=== PATIENT | male | born 1955 | race Caucasian/White ===

== ENCOUNTER → 2016-10-07 | Outpatient (REF) | payer OTHER ==
[~2016-10-07] MED LIST: /ESOM40CA; ADVIL; IBUP800T; LIPI20TA; LISI10TA4; VICO5TAB; VYTO10TA5
== END ==
LOC: M LABNEURO 17:19
PROVIDERS: ATTEND Psychiatry & Neurology Neurology
DX: M25.50 Pain in unspecified joint (principal)

== ENCOUNTER 2017-11-17 04:07 | Emergency (ER) | payer OTHER ==
[2017-11-17] MEDS: FLUORESCEIN OPHTH 1 MG STRIP OU (04:30)
[2017-11-17] MEDS: TETRACAINE 0.5% OPHTH SOLN 4ML OU (04:30)
[2017-11-17] MEDS: ERYTHROMYCIN OPHTH OINT OU (05:04)
[2017-11-17] MEDS: OXYCODONE/APAP 5MG/325MG(BULK FOR ED) 1 TABLET PO (05:04)
[2017-11-17] MEDS: ADACEL/BOOSTRIX VACCINE (DIPHTH/PERTUSS/ACELL/TETANUS)0.5ML SYR (90715) IM (05:04)
== END 2017-11-17 05:17 | disposition home or self-care (01) ==
LOC: M ED 04:07
DX: H16.133 Photokeratitis, bilateral (principal); W89.0XXA Exposure to welding light (arc), initial encounter; E11.9 Type 2 diabetes mellitus without complications; Y92.099 Unspecified place in other non-institutional residence as the place of occurrence of the external cause; Y93.89 Activity, other specified; Y99.9 Unspecified external cause status; Z79.01 Long term (current) use of anticoagulants; Z79.84 Long term (current) use of oral hypoglycemic drugs; Z79.899 Other long term (current) drug therapy; Z91.041 Radiographic dye allergy status
CPT/HCPCS: 90715

== ENCOUNTER → 2018-01-18 | Outpatient (REF) | payer OTHER ==
[2018-01-18 13:49] LABS: APPEARANCE, URINE CLEAR (CLEAR); BACTERIA, URINE AUTO NEGATIVE (NEGATIVE); BILIRUBIN, URINE AUTO NEGATIVE (NEGATIVE); BLOOD, URINE BLOOD NEGATIVE (NEGATIVE); COLOR, URINE YELLOW (YELLOW); GLUCOSE, URINE (UA) AUTO 3+ mg/dL (NEGATIVE); KETONE, URINE AUTO NEGATIVE (NEGATIVE); LEUKOCYTE ESTERASE, URINE AUTO NEGATIVE (NEGATIVE); MUCUS, URINE SMALL (NEGATIVE); NITRITE, URINE AUTO NEGATIVE (NEGATIVE); PROTEIN, URINE AUTO NEGATIVE (NEGATIVE); RBC, URINE AUTO 0 /HPF (0-3); SPECIFIC GRAVITY URINE AUTO 1.029 (1.002-1.035); SQUAMOUS EPITHELIAL CELL UR AU 0 /HPF (0-6); UROBILINOGEN, URINE AUTO 0.2 mg/dL (0.0-2.0); WBC, URINE AUTO 0 /HPF (0-3)
[2018-01-18 15:10] LABS: CHLAMYDIA DNA AMPLIFICATION NEGATIVE (NEGATIVE); GC DNA AMPLIFICATION NEGATIVE (NEGATIVE)
== END ==
LOC: M SMT 13:11
DX: R30.0 Dysuria (principal)
CPT/HCPCS: 81001

== ENCOUNTER 2018-02-07 07:04 | Day surgery (SDC) | payer OTHER ==
[2018-02-07] MEDS ORDERED: LIDOCAINE 2% INJ 100 MG/5 ML SDV (FOR ANES.) As Ordered (07:09)
[2018-02-07] MEDS ORDERED: PROPOFOL 200 MG/20 ML VIAL As Ordered (07:09)
[2018-02-07] MEDS: NS 1,000 ML IV (07:31)
== END 2018-02-07 09:37 | disposition home or self-care (01) ==
LOC: M OPP 07:04
DX: K62.5 Hemorrhage of anus and rectum (principal); D12.2 Benign neoplasm of ascending colon; K64.0 First degree hemorrhoids; K57.30 Diverticulosis of large intestine without perforation or abscess without bleeding; I10 Essential (primary) hypertension; E78.5 Hyperlipidemia, unspecified; E11.9 Type 2 diabetes mellitus without complications; Z87.19 Personal history of other diseases of the digestive system; Z97.8 Presence of other specified devices; Z86.79 Personal history of other diseases of the circulatory system; K21.9 Gastro-esophageal reflux disease without esophagitis; R12 Heartburn; M19.90 Unspecified osteoarthritis, unspecified site; M54.89 Other dorsalgia; M54.2 Cervicalgia; H02.9 Unspecified disorder of eyelid; Z86.73 Personal history of transient ischemic attack (TIA), and cerebral infarction without residual deficits; Z86.711 Personal history of pulmonary embolism; G47.30 Sleep apnea, unspecified; R06.83 Snoring; N40.1 Benign prostatic hyperplasia with lower urinary tract symptoms; Z98.1 Arthrodesis status; Z87.891 Personal history of nicotine dependence; Z91.041 Radiographic dye allergy status; Z79.01 Long term (current) use of anticoagulants; Z79.84 Long term (current) use of oral hypoglycemic drugs; Z79.899 Other long term (current) drug therapy
CPT/HCPCS: 45385

== ENCOUNTER → 2018-02-28 | Outpatient (REF) | payer OTHER ==
[2018-02-28 14:19] LABS: IRON (FE) 67 UG/DL (65-175); PERCENT SATURATION 19.5 % (19.7-50.0); TOTAL IRON BINDING CAPACITY 343 UG/DL (250-450)
[2018-03-01 08:06] LABS: TRANSFERRIN 259 mg/dL (200-370)
== END ==
LOC: M LAB REF 13:14
DX: G47.33 Obstructive sleep apnea (adult) (pediatric) (principal)

== ENCOUNTER → 2018-06-06 | Outpatient (REF) | payer OTHER ==
[2018-06-06 19:42] LABS: APPEARANCE, URINE CLEAR (CLEAR); BACTERIA, URINE AUTO NEGATIVE (NEGATIVE); BILIRUBIN, URINE AUTO NEGATIVE (NEGATIVE); BLOOD, URINE BLOOD NEGATIVE (NEGATIVE); COLOR, URINE YELLOW (YELLOW); GLUCOSE, URINE (UA) AUTO 3+ mg/dL (NEGATIVE); KETONE, URINE AUTO NEGATIVE (NEGATIVE); LEUKOCYTE ESTERASE, URINE AUTO NEGATIVE (NEGATIVE); MUCUS, URINE SMALL (NEGATIVE); NITRITE, URINE AUTO NEGATIVE (NEGATIVE); PROTEIN, URINE AUTO NEGATIVE (NEGATIVE); RBC, URINE AUTO 0 /HPF (0-3); SPECIFIC GRAVITY URINE AUTO 1.035 (1.002-1.035); SQUAMOUS EPITHELIAL CELL UR AU 0 /HPF (0-6); UROBILINOGEN, URINE AUTO 0.2 mg/dL (0.0-2.0); WBC, URINE AUTO 0 /HPF (0-3)
== END ==
LOC: M SMT 18:45
DX: R35.0 Frequency of micturition (principal)
CPT/HCPCS: 81001

== ENCOUNTER → 2018-09-13 | Outpatient (CLI) | payer OTHER ==
[~2018-09-13] MED LIST changes: +AMLO10TA PO; +COLA100C5 PO; +DOCU100C16 PO; +ELIQ5TAB PO; +FERR325T3 PO; +FLOM0.4C39 PO; +GLIP5TAB8 PO; +JARD1TAB PO; +LIPI20TA PO; +METF10004 PO; +NIFE30TA7 PO; +OMEGCAP9 PO; +PERC5TAB12 PO; +PROHANCE 279.3MG/ML 15ML VIAL (A9576) As Ordered ONE; +PROT1TAB2 PO; +TAGA200T3 PO; +VITA400C7 PO; +VITA500T PO; +ZANA4CAP PO; +ZETI10TA30 PO; +erythromycin ophth OU
--- NOTE | 2018-09-14 20:07 | REP ---
MRI ABDOMEN WITHOUT AND WITH CONTRAST: 09/13/2018. Comparison: Renal ultrasound [facility] 08/16/2018. MRI adrenals 02/04/2017 at [facility], CTA chest 01/11/2019 at [facility], noncontrast and contrast CT 10/17/2007 here. Technique: T2 coronal with axial in and out of phase, T2 and fat suppressed T2 sequences with gradient echo images along with diffusion-weighted images and ADC mapping sequence. After infusion of a bolus of 11 mL of ProHance, dynamic axial gradient echo fat suppressed sequences with coronal gradient echo sequence also provided. Clinical history: Recent ultrasound reviewed and question dromedary hump versus mass. The precontrast T2 images show a few parapelvic cysts in the left kidney and a couple of cortical cysts on the right, all with simple cyst characteristics. The largest is posteriorly in the interpolar lower pole junction of the right at 1.7 cm. The left adrenal gland is normal. However, the right adrenal gland shows changed from the previous MRI and CT in 2017. In the 19-month interval, the nodule in the right adrenal gland has enlarged further, now 3.2 x 2.7 x 2.3 cm on the T2 images, previously maximum diameter 2.2 cm in 2017. This lesion is new compared to CT chest in 2012. On the in and out of phase images, there are couple of small areas with signal drop off that might reflect some fat, but the gland is heterogeneous and not predominately fatty. Liver and spleen visible were without focal lesions. That portion of pancreas visible intact. The aorta without aneurysm. No periaortic or retroperitoneal adenopathy visible. After infusion of gadolinium, there is subtle but fairly poor heterogeneous enhancement. Impression: 1. 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 It enhances poorly and has a few areas with signal drop off on the [id number] images that may reflect small amounts of fat. There are no other lesions or masses in the visible volume of the abdomen included in the study. Differential remains lipid-poor adenoma, myelolipoma with only a small amount of fat or metastatic lesion. Adrenal carcinomas tend to be much larger and pheochromocytomas tend to have light bulb bright T2 signal which this does not. Nonetheless, its increase in size warrants consideration for biopsy. There is no evidence of hemorrhage within it. Electronically Signed by Kristopher Porter MD 09/15/2018 06:17 P
== END ==
LOC: M RAD 16:09
PROVIDERS: ATTEND Urology Pediatric Urology
DX: E27.9 Disorder of adrenal gland, unspecified (principal)
CPT/HCPCS: 74183; A9576

== ENCOUNTER → 2018-12-06 | Outpatient (REF) | payer OTHER ==
[~2018-12-06] MED LIST changes: -/ESOM40CA; +NEXI1CAP3; -PROHANCE 279.3MG/ML 15ML VIAL (A9576) As Ordered ONE
[2018-12-06 18:02] LABS: BASO # 0.1 10^3/uL (0.0-0.2); BASO % 0.9 % (0.0-1.0); EOS # 0.4 10^3/uL (0.0-0.50); EOS % 3.6 % (0.0-3.0); HEMATOCRIT 51.9 % (42.0-52.0); HEMOGLOBIN 17.1 g/dl (13.5-17.5); LYMPH # 3.6 10^3/uL (1.5-4.5); LYMPH % 30.8 % (24.0-44.0); MEAN CORPUSCULAR HEMOGLOBIN 28.8 pg (27.0-33.0); MEAN CORPUSCULAR HGB CONC 32.9 g/dl (32.0-36.5); MEAN CORPUSCULAR VOLUME 87.4 fl (80.0-96.0); MONO # 1.4 10^3/uL (0.0-0.8); MONO % 11.7 % (0.0-5.0); NEUTROPHILS # 6.1 10^3/uL (1.8-7.7); NEUTROPHILS % 52.5 % (36.0-66.0); PLATELET COUNT, AUTOMATED 260 10^3/uL (150-450); RED BLOOD COUNT 5.94 10^6/uL (4.30-6.10); WHITE BLOOD COUNT 11.6 10^3/uL (4.0-10.0)
[2018-12-06 18:10] LABS: ALBUMIN 4.5 GM/DL (3.2-5.2); ALT/SGPT 46 U/L (12-78); BILIRUBIN,TOTAL 0.5 MG/DL (0.2-1.0); BLOOD UREA NITROGEN 20 MG/DL (7-18); CARBON DIOXIDE LEVEL 28 MEQ/L (21-32); CHLORIDE LEVEL 105 MEQ/L (98-107); CHOLESTEROL LEVEL 151 MG/DL (<200); CHOLESTEROL RISK RATIO 3.595 (<5); CREATININE FOR GFR 1.15 MG/DL (0.70-1.30); FREE T4 1.02 NG/DL (0.76-1.46); GLOMERULAR FILTRATION RATE > 60.0 (>49); GLUCOSE, FASTING 141 MG/DL (70-100); HDL CHOLESTEROL 42 MG/DL (>40); NON-HDL-C 109 MG/DL; POTASSIUM SERUM 4.5 MEQ/L (3.5-5.1); SODIUM LEVEL 142 MEQ/L (136-145); TOTAL PROTEIN 7.4 GM/DL (6.4-8.2); TRIGLYCERIDES LEVEL 418 MG/DL (<150)
[2018-12-06 18:11] LABS: HEMOGLOBIN A1c 7.7 %
[2018-12-06 18:37] LABS: CREATININE, URINE 49.6 MG/DL; MALB URINE SIEMENS 43.7 MG/L; MAU/CREAT RATIO 88.1 MCG/MG (0.0-30.0)
== END ==
LOC: M SFHCLERA 10:21
PROVIDERS: ATTEND Family Medicine
DX: E11.65 Type 2 diabetes mellitus with hyperglycemia (principal)
CPT/HCPCS: 80053; 80061; 82043; 83036; 84439; 84443; 85025; G0463

== ENCOUNTER → 2019-02-07 | Outpatient (REF) | payer OTHER ==
[2019-02-07 17:10] LABS: BASO # 0.1 10^3/uL (0.0-0.2); BASO % 0.5 % (0.0-1.0); EOS # 0.8 10^3/uL (0.0-0.50); EOS % 5.7 % (0.0-3.0); HEMOGLOBIN 12.8 g/dl (13.5-17.5); LYMPH # 3.3 10^3/uL (1.5-4.5); LYMPH % 23.3 % (24.0-44.0); MEAN CORPUSCULAR HEMOGLOBIN 28.3 pg (27.0-33.0); MEAN CORPUSCULAR VOLUME 88.5 fl (80.0-96.0); MONO # 1.6 10^3/uL (0.0-0.8); MONO % 11.3 % (0.0-5.0); NEUTROPHILS # 8.1 10^3/uL (1.8-7.7); NEUTROPHILS % 57.4 % (36.0-66.0); PLATELET COUNT, AUTOMATED 354 10^3/uL (150-450); RED BLOOD COUNT 4.52 10^6/uL (4.30-6.10); WHITE BLOOD COUNT 14.1 10^3/uL (4.0-10.0)
[2019-02-07 17:13] LABS: ALBUMIN 3.4 GM/DL (3.2-5.2); ALT/SGPT 59 U/L (12-78); BILIRUBIN,TOTAL 0.3 MG/DL (0.2-1.0); BLOOD UREA NITROGEN 16 MG/DL (7-18); CALCIUM LEVEL 9.6 MG/DL (8.8-10.2); CARBON DIOXIDE LEVEL 29 MEQ/L (21-32); CHLORIDE LEVEL 106 MEQ/L (98-107); CREATININE FOR GFR 1.21 MG/DL (0.70-1.30); GLOMERULAR FILTRATION RATE > 60.0 (>49); GLUCOSE, FASTING 96 MG/DL (70-100); POTASSIUM SERUM 5.3 MEQ/L (3.5-5.1); SODIUM LEVEL 140 MEQ/L (136-145); TOTAL PROTEIN 6.9 GM/DL (6.4-8.2)
== END ==
LOC: M SFHCLERA 11:34
PROVIDERS: ATTEND Family Medicine
DX: D35.00 Benign neoplasm of unspecified adrenal gland (principal)

== ENCOUNTER → 2019-02-21 | Outpatient (CLI) | payer OTHER ==
[~2019-02-21] MED LIST changes: +ZETI10TA16 PO; -ZETI10TA30 PO
--- NOTE | 2019-02-21 19:54 | REP ---
HISTORY: Trauma. Four views left wrist. FINDINGS: No acute fracture or destructive osseous lesion. Electronically Signed by Hola Lebron DO 02/22/2019 10:54 A
== END ==
LOC: M LRY 16:26
PROVIDERS: ATTEND Family Medicine
DX: M25.532 Pain in left wrist (principal)

== ENCOUNTER → 2019-04-03 | Outpatient (REF) | payer OTHER ==
[2019-04-03 20:40] LABS: BASO # 0.1 10^3/uL (0.0-0.2); BASO % 0.8 % (0.0-1.0); EOS # 0.2 10^3/uL (0.0-0.5); EOS % 2.4 % (0.0-3.0); HEMATOCRIT 47.2 % (42.0-52.0); HEMOGLOBIN 15.4 g/dl (13.5-17.5); LYMPH # 3.1 10^3/uL (1.5-5.0); LYMPH % 37.4 % (24.0-44.0); MEAN CORPUSCULAR HEMOGLOBIN 29.1 pg (27.0-33.0); MEAN CORPUSCULAR HGB CONC 32.6 g/dl (32.0-36.5); MEAN CORPUSCULAR VOLUME 89.1 fl (80.0-96.0); MONO % 12.4 % (0.0-5.0); NEUTROPHILS # 3.9 10^3/uL (1.5-8.5); NEUTROPHILS % 46.6 % (36.0-66.0); PLATELET COUNT, AUTOMATED 210 10^3/uL (150-450); WHITE BLOOD COUNT 8.4 10^3/uL (4.0-10.0)
[2019-04-03 20:46] LABS: ALBUMIN 4.2 GM/DL (3.2-5.2); ALT/SGPT 27 U/L (12-78); BILIRUBIN,TOTAL 0.6 MG/DL (0.2-1.0); BLOOD UREA NITROGEN 17 MG/DL (7-18); CALCIUM LEVEL 9.1 MG/DL (8.8-10.2); CARBON DIOXIDE LEVEL 28 MEQ/L (21-32); CHLORIDE LEVEL 108 MEQ/L (98-107); CREATININE FOR GFR 1.13 MG/DL (0.70-1.30); GLOMERULAR FILTRATION RATE > 60.0 (>49); GLUCOSE, FASTING 100 MG/DL (70-100); POTASSIUM SERUM 4.3 MEQ/L (3.5-5.1); SODIUM LEVEL 142 MEQ/L (136-145)
== END ==
LOC: M SFHCLERA 16:48
PROVIDERS: ATTEND Family Medicine
DX: R74.8 Abnormal levels of other serum enzymes (principal); D72.829 Elevated white blood cell count, unspecified

== ENCOUNTER → 2019-09-11 | Outpatient (REF) | payer OTHER ==
[~2019-09-11] MED LIST changes: +NIFE1TAB52 PO; -NIFE30TA7 PO
[2019-09-11 16:23] LABS: BLOOD UREA NITROGEN 19 MG/DL (7-18); CALCIUM LEVEL 9.5 MG/DL (8.8-10.2); CARBON DIOXIDE LEVEL 27 MEQ/L (21-32); CHLORIDE LEVEL 107 MEQ/L (98-107); CREATININE FOR GFR 1.13 MG/DL (0.70-1.30); GLOMERULAR FILTRATION RATE > 60.0 (>49); GLUCOSE, FASTING 124 MG/DL (70-100); POTASSIUM SERUM 4.5 MEQ/L (3.5-5.1); SODIUM LEVEL 140 MEQ/L (136-145)
[2019-09-11 17:40] LABS: HEMOGLOBIN A1c 6.4 %
== END ==
LOC: M SFHCLERA 11:21
PROVIDERS: ATTEND Family Medicine
DX: E11.22 Type 2 diabetes mellitus with diabetic chronic kidney disease (principal)

== ENCOUNTER → 2019-09-24 | Outpatient (REF) | payer OTHER ==
[2019-09-24 17:05] LABS: MALB URINE SIEMENS 9.5 MG/L; MAU/CREAT RATIO 7.6 MCG/MG (0.0-30.0)
== END ==
LOC: M LAB REF 15:27
PROVIDERS: ATTEND Nurse Practitioner Family
DX: E11.65 Type 2 diabetes mellitus with hyperglycemia (principal)

== ENCOUNTER → 2019-12-20 | Outpatient (CLI) | payer OTHER ==
[~2019-12-20] MED LIST changes: +VITA-243 PO; -VITA500T PO
[2019-12-29 12:07] LABS: METANEPHRINE PLASMA 33.4 pg/mL (0.0-88.0); NORMETANEPHRINE PLASMA 85.8 pg/mL (0.0-191.8)
== END ==
LOC: M LAB 10:41
PROVIDERS: ATTEND Nurse Practitioner Family
DX: D35.01 Benign neoplasm of right adrenal gland (principal)

== ENCOUNTER → 2019-12-22 | Outpatient (REF) | payer OTHER | LOC: M LAB REF 11:33 | PROVIDERS: ATTEND Internal Medicine Endocrinology, Diabetes & Metabolism | DX: D35.1 Benign neoplasm of parathyroid gland (principal) ==

== ENCOUNTER → 2020-04-26 | Outpatient (CLI) | payer OTHER ==
[2020-04-26 09:51] LABS: HEMATOCRIT 47.9 % (42.0-52.0); HEMOGLOBIN 15.3 g/dl (13.5-17.5); MEAN CORPUSCULAR HEMOGLOBIN 28.6 pg (27.0-33.0); MEAN CORPUSCULAR HGB CONC 31.9 g/dl (32.0-36.5); MEAN CORPUSCULAR VOLUME 89.5 fl (80.0-96.0); PLATELET COUNT, AUTOMATED 196 10^3/uL (150-450); RED BLOOD COUNT 5.35 10^6/uL (4.30-6.10); WHITE BLOOD COUNT 8.1 10^3/uL (4.0-10.0)
[2020-04-26 10:21] LABS: ALBUMIN 3.7 GM/DL (3.2-5.2); ALT/SGPT 22 U/L (12-78); BILIRUBIN,TOTAL 0.6 MG/DL (0.2-1.0); BLOOD UREA NITROGEN 22 MG/DL (7-18); CALCIUM LEVEL 8.5 MG/DL (8.8-10.2); CARBON DIOXIDE LEVEL 25 MEQ/L (21-32); CHLORIDE LEVEL 111 MEQ/L (98-107); CHOLESTEROL LEVEL 166 MG/DL (<200); CHOLESTEROL RISK RATIO 3.254 (<5); CREATININE FOR GFR 1.05 MG/DL (0.70-1.30); GLOMERULAR FILTRATION RATE > 60.0 (>49); GLUCOSE, FASTING 114 MG/DL (70-100); HDL CHOLESTEROL 51 MG/DL (>40); LDL CHOLESTEROL 73 MG/DL (<100); NON-HDL-C 115 MG/DL; POTASSIUM SERUM 4.1 MEQ/L (3.5-5.1); SODIUM LEVEL 142 MEQ/L (136-145); TOTAL PROTEIN 6.5 GM/DL (6.4-8.2); TRIGLYCERIDES LEVEL 210 MG/DL (<150)
[2020-04-26 10:29] LABS: MALB URINE SIEMENS 6.7 MG/L; MAU/CREAT RATIO 5.2 MCG/MG (0.0-30.0)
== END ==
LOC: M LAB 09:07
PROVIDERS: ATTEND Internal Medicine Endocrinology, Diabetes & Metabolism
DX: E11.65 Type 2 diabetes mellitus with hyperglycemia (principal)

== ENCOUNTER → 2020-07-14 | Outpatient (CLI) | payer OTHER ==
[2020-07-14 17:30] LABS: BLOOD UREA NITROGEN 16 MG/DL (7-18); CREATININE FOR GFR 1.09 MG/DL (0.70-1.30); GLOMERULAR FILTRATION RATE > 60.0 (>49)
== END ==
LOC: M LAB 15:38
PROVIDERS: ATTEND Psychiatry & Neurology Neurology
DX: I10 Essential (primary) hypertension (principal)

== ENCOUNTER → 2020-10-20 | Outpatient (CLI) | payer OTHER, MEDICARE ==
[2020-10-20 18:44] LABS: HEMOGLOBIN A1c 7.6 %
== END ==
LOC: M LAB 15:52
PROVIDERS: ATTEND Family Medicine
DX: E11.22 Type 2 diabetes mellitus with diabetic chronic kidney disease (principal)

== ENCOUNTER → 2020-10-27 | Outpatient (CLI) | payer OTHER, MEDICARE | LOC: M LAB 15:16 | PROVIDERS: ATTEND Internal Medicine Endocrinology, Diabetes & Metabolism | DX: D35.01 Benign neoplasm of right adrenal gland (principal) ==

== ENCOUNTER → 2020-11-03 | Outpatient (CLI) | payer OTHER, MEDICARE ==
[2020-11-03 15:35] LABS: BLOOD UREA NITROGEN 19 MG/DL (7-18); CALCIUM LEVEL 9.2 MG/DL (8.8-10.2); CARBON DIOXIDE LEVEL 27 MEQ/L (21-32); CHLORIDE LEVEL 110 MEQ/L (98-107); CHOLESTEROL LEVEL 110 MG/DL (<200); CHOLESTEROL RISK RATIO 2.558 (<5); CREATININE FOR GFR 1.08 MG/DL (0.70-1.30); GLOMERULAR FILTRATION RATE > 60.0 (>49); GLUCOSE, FASTING 105 MG/DL (70-100); HDL CHOLESTEROL 43 MG/DL (>40); LDL CHOLESTEROL 23 MG/DL (<100); NON-HDL-C 67 MG/DL; NT-PRO BNP 21 PG/ML (<125); POTASSIUM SERUM 4.3 MEQ/L (3.5-5.1); SODIUM LEVEL 142 MEQ/L (136-145); TRIGLYCERIDES LEVEL 219 MG/DL (<150)
== END ==
LOC: M LAB 12:22
PROVIDERS: ATTEND Internal Medicine Cardiovascular Disease
DX: I50.9 Heart failure, unspecified (principal)

== ENCOUNTER → 2020-11-04 | Outpatient (REF) | payer OTHER, MEDICARE | LOC: M LAB REF 16:02 | PROVIDERS: ATTEND Internal Medicine Endocrinology, Diabetes & Metabolism | DX: D35.01 Benign neoplasm of right adrenal gland (principal) ==

== ENCOUNTER → 2020-12-15 | Outpatient (CLI) | payer OTHER ==
[2020-12-15 17:34] LABS: BASO # 0.1 10^3/uL (0.0-0.2); BASO % 0.8 % (0.0-1.0); EOS # 0.3 10^3/uL (0.0-0.5); EOS % 2.8 % (0.0-3.0); HEMATOCRIT 45.8 % (42.0-52.0); HEMOGLOBIN 14.7 g/dl (13.5-17.5); LYMPH # 3.2 10^3/uL (1.5-5.0); MEAN CORPUSCULAR HEMOGLOBIN 28.6 pg (27.0-33.0); MEAN CORPUSCULAR HGB CONC 32.1 g/dl (32.0-36.5); MEAN CORPUSCULAR VOLUME 89.1 fl (80.0-96.0); MONO % 11.6 % (2.0-8.0); NEUTROPHILS # 4.3 10^3/uL (1.5-8.5); NEUTROPHILS % 48.6 % (36.0-66.0); PLATELET COUNT, AUTOMATED 204 10^3/uL (150-450); RED BLOOD COUNT 5.14 10^6/uL (4.30-6.10); WHITE BLOOD COUNT 8.8 10^3/uL (4.0-10.0)
--- NOTE | 2020-12-15 17:45 | REP ---
INDICATION: SWELLING OF LEFT RING FINGER. COMPARISON: None. TECHNIQUE: Four views FINDINGS: Degenerative changes seen involving the DIP joints of digits 3 through 5. The 2nd digit has been amputated. There is an internal fixators seen in the 1st digit. There is no evidence of an acute fracture. IMPRESSION: Chronic changes as described above <Electronically signed by Hola Lebron > 12/15/20 [id number]
[2020-12-15 17:53] LABS: BLOOD UREA NITROGEN 16 MG/DL (7-18); CARBON DIOXIDE LEVEL 27 MEQ/L (21-32); CHLORIDE LEVEL 108 MEQ/L (98-107); CREATININE FOR GFR 1.09 MG/DL (0.70-1.30); GLOMERULAR FILTRATION RATE > 60.0 (>49); GLUCOSE, FASTING 154 MG/DL (70-100); POTASSIUM SERUM 4.1 MEQ/L (3.5-5.1); RHEUMATOID FACTOR QUANT < 10.0 IU/ML (<15.0); SODIUM LEVEL 140 MEQ/L (136-145); URIC ACID 4.4 MG/DL (3.5-7.2)
[2020-12-15 18:59] LABS: ERYTHROCYTE SEDIMENTATION RATE 4 mm/hr (0-20)
== END ==
LOC: M RAD 16:50
PROVIDERS: ATTEND Family Medicine
DX: M79.89 Other specified soft tissue disorders (principal)

== ENCOUNTER → 2020-12-15 | Outpatient (REF) | payer OTHER | LOC: M SFHCLERA 15:52 | PROVIDERS: ATTEND Nurse Practitioner Family | DX: M79.89 Other specified soft tissue disorders (principal); Z53.9 Procedure and treatment not carried out, unspecified reason ==

== ENCOUNTER 2020-12-24 18:20 | Emergency (ER) | payer OTHER, MEDICARE ==
[~2020-12-24] VITALS: Ht 172.7 cm; Wt 122.7 kg
[2020-12-24 18:34] VITALS: BP 139/77
[2020-12-24 21:23] LABS: BASO # 0.1 10^3/uL (0.0-0.2); BASO % 0.7 % (0.0-1.0); EOS # 0.3 10^3/uL (0.0-0.5); EOS % 2.8 % (0.0-3.0); HEMATOCRIT 47.7 % (42.0-52.0); HEMOGLOBIN 15.4 g/dl (13.5-17.5); LYMPH # 4.1 10^3/uL (1.5-5.0); LYMPH % 34.3 % (24.0-44.0); MEAN CORPUSCULAR HEMOGLOBIN 28.4 pg (27.0-33.0); MEAN CORPUSCULAR HGB CONC 32.3 g/dl (32.0-36.5); MEAN CORPUSCULAR VOLUME 87.8 fl (80.0-96.0); MONO # 1.1 10^3/uL (0.0-0.8); MONO % 8.8 % (2.0-8.0); NEUTROPHILS # 6.3 10^3/uL (1.5-8.5); NEUTROPHILS % 52.8 % (36.0-66.0); PLATELET COUNT, AUTOMATED 247 10^3/uL (150-450); RED BLOOD COUNT 5.43 10^6/uL (4.30-6.10)
[2020-12-24 21:42] LABS: BLOOD UREA NITROGEN 22 MG/DL (7-18); CALCIUM LEVEL 9.2 MG/DL (8.8-10.2); CARBON DIOXIDE LEVEL 24 MEQ/L (21-32); CHLORIDE LEVEL 108 MEQ/L (98-107); CREATININE FOR GFR 1.14 MG/DL (0.70-1.30); GLOMERULAR FILTRATION RATE > 60.0 (>49); GLUCOSE, FASTING 109 MG/DL (70-100); POTASSIUM SERUM 4.6 MEQ/L (3.5-5.1); SODIUM LEVEL 140 MEQ/L (136-145)
[2020-12-24 21:58] LABS: ERYTHROCYTE SEDIMENTATION RATE 2 mm/hr (0-20)
--- NOTE | 2020-12-24 22:12 | REPVR ---
PROCEDURE INFORMATION: Exam: XR Left Hand Exam date and time: 12/24/2020 8:47 PM Age: 65 years old Clinical indication: Other: Increased swelling; Additional info: Increased swelling 3rd-5th digit, limited rom TECHNIQUE: Imaging protocol: XR Left hand. Views: 3 or more views. COMPARISON: 1. CR Hand, complete 12/15/2020 5:18 PM 2. CR WRIST COMPLETE LEFT 02/21/2019 4:38 PM FINDINGS: Bones/joints: Status post resection of the 2nd finger at the mid metacarpal. Status post ORIF thumb with fusion of the proximal and partially resected distal phalanx. Degenerative changes in the interphalangeal joints including osteophytosis. No erosive changes demonstrated. There is increasing lateral angulation of the distal phalanx of the 3rd finger in comparison to the prior study which also appears to be subluxed. Soft tissues: Normal. IMPRESSION: 1. Status post resection of the 2nd finger at the mid metacarpal. 2. Status post ORIF thumb with fusion of the proximal and partially resected distal phalanx. 3. There is increasing lateral angulation of the distal phalanx of the 3rd finger in comparison to the prior study which also appears to be subluxed. Electronically signed by: Tavares Romero On 12/24/2020 22:11:56 PM
--- NOTE | 2020-12-24 22:13 | REPVR ---
PROCEDURE INFORMATION: Exam: XR Left Wrist Exam date and time: 12/24/2020 8:47 PM Age: 65 years old Clinical indication: Other: Increased swelling; Additional info: Increased swelling 3rd-5th digit, limited rom through wrist TECHNIQUE: Imaging protocol: XR Left wrist. Views: 3 or more views. COMPARISON: 1. CR WRIST COMPLETE LEFT 02/21/2019 4:38 PM 2. CR Hand, complete 12/15/2020 5:18 PM FINDINGS: Bones/joints: Status post resection of the 2nd finger at the mid metacarpal. Otherwise unremarkable. Soft tissues: Normal. IMPRESSION: No acute findings. Electronically signed by: Tavares Romero On 12/24/2020 22:12:51 PM
--- NOTE | 2020-12-24 22:15 | REPVR ---
PROCEDURE INFORMATION: Exam: US Duplex Left Upper Extremity Veins, Limited Exam date and time: 12/24/2020 9:18 PM Age: 65 years old Clinical indication: Pain; Arm, lower; Left; Additional info: Tingling down into wrist and numbness, RO dvt TECHNIQUE: Imaging protocol: Real-time Duplex ultrasound of the Left Upper Extremity with 2-D wellington scale, color Doppler flow and spectral waveform analysis with image documentation. Limited exam focused on the left upper extremity veins. COMPARISON: 1. CR Hand, complete LEFT 12/24/2020 8:37 PM 2. CR Wrist, complete LEFT 12/24/2020 8:37 PM FINDINGS: Left deep veins: Unremarkable. Axillary and brachial veins are patent throughout without thrombus. Normal Doppler waveforms. Normal compressibility and/or augmentation response. Visualized internal jugular and subclavian veins are patent. Left superficial veins: The cephalic vein is not visualized. Otherwise unremarkable. Visualized basilic veins are patent without thrombus. Soft tissues: Unremarkable. IMPRESSION: No evidence of deep vein thrombosis. The cephalic vein is not visualized. As such, the possibility of a superficial thrombophlebitis is not excluded and should be correlated clinically. Electronically signed by: Tavares Romero On 12/24/2020 22:14:30 PM
[2020-12-24] MEDS ORDERED: ACETAMINOPHEN 325 MG TAB PO ONE (22:25)
[2020-12-24] MEDS ORDERED: tiZANidine 4 MG TAB PO ONE (22:25)
== END 2020-12-24 23:45 | disposition home or self-care (01) ==
LOC: M ED 18:20
DX: R22.32 Localized swelling, mass and lump, left upper limb (principal); I48.91 Unspecified atrial fibrillation; E11.9 Type 2 diabetes mellitus without complications; G47.33 Obstructive sleep apnea (adult) (pediatric); Z79.01 Long term (current) use of anticoagulants; Z79.84 Long term (current) use of oral hypoglycemic drugs; Z79.899 Other long term (current) drug therapy; Z91.041 Radiographic dye allergy status; Z86.73 Personal history of transient ischemic attack (TIA), and cerebral infarction without residual deficits; Z98.890 Other specified postprocedural states

== ENCOUNTER → 2021-05-25 | Outpatient (REF) | payer MEDICARE, OTHER ==
[2021-05-25 18:41] LABS: MAU/CREAT RATIO 4.5 MCG/MG (0.0-30.0)
== END ==
LOC: M LAB REF 16:44
PROVIDERS: ATTEND Internal Medicine Endocrinology, Diabetes & Metabolism
DX: E11.65 Type 2 diabetes mellitus with hyperglycemia (principal)

== ENCOUNTER → 2021-11-02 | Outpatient (REF) | payer MEDICARE, OTHER | LOC: M SFHCPLAZ 10:03 | PROVIDERS: ATTEND Physician Assistant | DX: R05.9 Cough, unspecified (principal) ==

== ENCOUNTER 2021-11-04 12:46 | Outpatient (CLI) | payer MEDICARE, OTHER ==
[~2021-11-04] VITALS: Ht 172.7 cm; Wt 125.0 kg
[~2021-11-04 12:46] MED LIST changes: +ALBUTEROL SULFATE 2.5 MG/0.5 ML INH NEB SOLN INH PRN; +EPINEPHrine INJ 1 MG/ML 1ML AMP IM PRN; +diphenhydrAMINE 50MG/ML VIAL (J1200) IV PRN; +methylPREDNISolone 125MG 2ML VIAL IV PRN
[2021-11-04 13:11] VITALS: BP 136/79
[2021-11-04] MEDS ORDERED: BEBTELOVIMAB 175MG 2ML VIAL (EUA) IV ONE (13:30)
[2021-11-04 14:05] VITALS: BP 128/75
== END 2021-11-04 14:22 ==
LOC: M OPCLI4PR 12:46 → M 4MAIN 12:51 → M OPCLI4PR 14:22
PROVIDERS: ATTEND Physician Assistant
DX: U07.1 COVID-19 (principal); Z91.041 Radiographic dye allergy status

== ENCOUNTER → 2021-11-11 | Outpatient (CLI) | payer MEDICARE, OTHER ==
[~2021-11-11] MED LIST changes: -ALBUTEROL SULFATE 2.5 MG/0.5 ML INH NEB SOLN INH PRN; -EPINEPHrine INJ 1 MG/ML 1ML AMP IM PRN; -diphenhydrAMINE 50MG/ML VIAL (J1200) IV PRN; -methylPREDNISolone 125MG 2ML VIAL IV PRN
[2021-11-11 16:48] LABS: HEMOGLOBIN A1c 6.2 %
== END ==
LOC: M WUC 11:15
PROVIDERS: ATTEND Student in an Organized Health Care Education/Training Program
DX: E11.22 Type 2 diabetes mellitus with diabetic chronic kidney disease (principal); N18.9 Chronic kidney disease, unspecified

== ENCOUNTER → 2022-01-25 | Outpatient (REF) | payer MEDICARE, OTHER ==
[2022-01-25 16:39] LABS: BASO # 0.1 10^3/uL (0.0-0.2); BASO % 0.9 % (0.0-1.0); EOS # 0.3 10^3/uL (0.0-0.5); EOS % 3.6 % (0.0-3.0); HEMATOCRIT 48.3 % (42.0-52.0); HEMOGLOBIN 15.9 g/dl (13.5-17.5); LYMPH # 3.3 10^3/uL (1.5-5.0); LYMPH % 37.9 % (24.0-44.0); MEAN CORPUSCULAR HEMOGLOBIN 29.9 pg (27.0-33.0); MEAN CORPUSCULAR HGB CONC 32.9 g/dl (32.0-36.5); MONO # 0.9 10^3/uL (0.0-0.8); MONO % 9.9 % (2.0-8.0); NEUTROPHILS # 4.2 10^3/uL (1.5-8.5); NEUTROPHILS % 47.4 % (36.0-66.0); PLATELET COUNT, AUTOMATED 212 10^3/uL (150-450); RED BLOOD COUNT 5.31 10^6/uL (4.30-6.10); WHITE BLOOD COUNT 8.8 10^3/uL (4.0-10.0)
[2022-01-25 19:48] LABS: ALBUMIN 4.1 GM/DL (3.2-5.2); ALT/SGPT 39 IU/L (0-32); BILIRUBIN,TOTAL 0.7 MG/DL (0.2-1.0); BLOOD UREA NITROGEN 17 MG/DL (7-18); CALCIUM LEVEL 9.1 MG/DL (8.8-10.2); CARBON DIOXIDE LEVEL 26 mmol/L (20-29); CHLORIDE LEVEL 108 MEQ/L (98-107); CREATININE FOR GFR 1.16 MG/DL (0.70-1.30); GLOMERULAR FILTRATION RATE > 60.0 (>49); GLUCOSE, FASTING 125 MG/DL (70-100); POTASSIUM SERUM 4.3 MEQ/L (3.5-5.1); SODIUM LEVEL 140 MEQ/L (136-145); TOTAL PROTEIN 6.7 GM/DL (6.4-8.2)
== END ==
LOC: M LABWUC 15:57
PROVIDERS: ATTEND Psychiatry & Neurology Neurology
DX: R56.9 Unspecified convulsions (principal)

== ENCOUNTER → 2022-02-02 | Outpatient (CLI) | payer MEDICARE, OTHER | LOC: M WUC 09:34 | PROVIDERS: ATTEND Psychiatry & Neurology Neurology | DX: G40.89 Other seizures (principal); Z51.81 Encounter for therapeutic drug level monitoring ==

== ENCOUNTER → 2022-04-30 | Outpatient (REF) | payer MEDICARE, OTHER ==
[2022-04-30 19:16] LABS: MALB URINE SIEMENS 5.3 MG/L; MAU/CREAT RATIO 3.9 MCG/MG (0.0-30.0)
== END ==
LOC: M LAB REF 16:55
PROVIDERS: ATTEND Internal Medicine Endocrinology, Diabetes & Metabolism
DX: E11.65 Type 2 diabetes mellitus with hyperglycemia (principal)

== ENCOUNTER → 2022-04-30 | Outpatient (CLI) | payer MEDICARE, OTHER ==
[2022-04-30 18:04] LABS: BLOOD UREA NITROGEN 14 MG/DL (7-18); CALCIUM LEVEL 9.2 MG/DL (8.8-10.2); CARBON DIOXIDE LEVEL 25 MEQ/L (21-32); CHLORIDE LEVEL 108 MEQ/L (98-107); CREATININE FOR GFR 1.12 MG/DL (0.70-1.30); GLOMERULAR FILTRATION RATE > 60.0 (>49); GLUCOSE, FASTING 163 MG/DL (70-100); MAGNESIUM LEVEL 2.2 MG/DL (1.8-2.4); NT-PRO BNP 58 PG/ML (<125); POTASSIUM SERUM 4.3 MEQ/L (3.5-5.1); SODIUM LEVEL 141 MEQ/L (136-145)
== END ==
LOC: M WUC 10:50
PROVIDERS: ATTEND Internal Medicine Cardiovascular Disease
DX: I50.9 Heart failure, unspecified (principal); I48.91 Unspecified atrial fibrillation

== ENCOUNTER 2022-05-25 18:30 | Emergency (ER) | payer MEDICARE, OTHER ==
[~2022-05-25] VITALS: Ht 172.7 cm; Wt 122.6 kg
[2022-05-25] MEDS ORDERED: MYRB25TA (18:46)
[2022-05-25] MEDS ORDERED: TADA5TAB (18:46)
[2022-05-25] MEDS ORDERED: TELM1TAB35 (18:46)
[2022-05-25] MEDS ORDERED: BISO5TAB14 (18:46)
[2022-05-25] MEDS ORDERED: GABA-282 (18:46)
[2022-05-25] MEDS ORDERED: DULA3PEN (18:46)
[2022-05-25] MEDS ORDERED: PERCOCET 5MG/325MG TAB PO ONE (22:35)
[2022-05-25] MEDS ORDERED: PERC5TAB12 PO (22:53)
[2022-05-25 22:59] VITALS: BP 158/76
== END 2022-05-25 22:59 | disposition home or self-care (01) ==
LOC: M ED 18:30
DX: S82.91XA Unspecified fracture of right lower leg, initial encounter for closed fracture (principal); S93.401A Sprain of unspecified ligament of right ankle, initial encounter; W00.0XXA Fall on same level due to ice and snow, initial encounter; Y92.009 Unspecified place in unspecified non-institutional (private) residence as the place of occurrence of the external cause; Z91.041 Radiographic dye allergy status; Z79.01 Long term (current) use of anticoagulants; Z79.84 Long term (current) use of oral hypoglycemic drugs; Z79.899 Other long term (current) drug therapy

== ENCOUNTER → 2022-07-30 | Outpatient (CLI) | payer MEDICARE, OTHER ==
[~2022-07-30] MED LIST changes: +BISO5TAB14; +DULA3PEN; +GABA-282; +MYRB25TA; +TADA5TAB; +TELM1TAB35
[2022-07-30 09:36] LABS: BASO # 0.1 10^3/uL (0.0-0.2); BASO % 1.1 % (0.0-1.0); EOS # 0.5 10^3/uL (0.0-0.5); EOS % 5.2 % (0.0-3.0); HEMATOCRIT 50.7 % (42.0-52.0); HEMOGLOBIN 16.7 g/dl (13.5-17.5); LYMPH # 3.3 10^3/uL (1.5-5.0); LYMPH % 37.6 % (24.0-44.0); MEAN CORPUSCULAR HEMOGLOBIN 29.9 pg (27.0-33.0); MEAN CORPUSCULAR HGB CONC 32.9 g/dl (32.0-36.5); MEAN CORPUSCULAR VOLUME 90.9 fl (80.0-96.0); MONO % 11.7 % (2.0-8.0); NEUTROPHILS # 3.8 10^3/uL (1.5-8.5); NEUTROPHILS % 43.9 % (36.0-66.0); PLATELET COUNT, AUTOMATED 208 10^3/uL (150-450); RED BLOOD COUNT 5.58 10^6/uL (4.30-6.10); WHITE BLOOD COUNT 8.7 10^3/uL (4.0-10.0)
[2022-07-30 10:05] LABS: ALBUMIN 4.3 G/DL (3.2-5.2); ALKALINE PHOSPHATASE 97 U/L (46-116); ALT/SGPT 34 U/L (7.0-40); AST/SGOT 27 U/L (<34); BILIRUBIN,TOTAL 0.8 MG/DL (0.3-1.2); BLOOD UREA NITROGEN 20 MG/DL (9-23); CARBON DIOXIDE LEVEL 27 MMOL/L (20-31); CHLORIDE LEVEL 105 MMOL/L (98-107); CHOLESTEROL LEVEL 122 MG/DL (<200); CHOLESTEROL RISK RATIO 2.66 (<5); CREATININE FOR GFR 1.04 MG/DL (0.70-1.30); GLOMERULAR FILTRATION RATE > 60.0 (>49); GLUCOSE, FASTING 132 MG/DL (74-106); HDL CHOLESTEROL 45.7 MG/DL (>40); LDL CHOLESTEROL 26.1 MG/DL (<100); NON-HDL-C 76 MG/DL; POTASSIUM SERUM 4.5 MMOL/L (3.5-5.1); SODIUM LEVEL 142 MMOL/L (136-145); TOTAL PROTEIN 6.8 G/DL (5.7-8.2); TRIGLYCERIDES LEVEL 251 MG/DL (<150)
== END ==
LOC: M WUC 08:28
PROVIDERS: ATTEND Student in an Organized Health Care Education/Training Program
DX: Z00.00 Encounter for general adult medical examination without abnormal findings (principal); Z79.899 Other long term (current) drug therapy

== ENCOUNTER → 2023-07-07 | Outpatient (CLI) | payer MEDICARE, OTHER ==
[~2023-07-07] MED LIST changes: +EZET10TA58 PO; +GLIP5TAB17 PO; -GLIP5TAB8 PO; -ZETI10TA16 PO
== END ==
LOC: M SOG 10:20
PROVIDERS: ATTEND Physician Assistant
DX: M79.644 Pain in right finger(s) (principal)

== ENCOUNTER → 2023-07-25 | Outpatient (CLI) | payer MEDICARE, OTHER ==
[~2023-07-25] MED LIST changes: -BISO5TAB14; +BISO5TAB14 PO; +CENT1TAB12 PO; +D200CAP3 PO; +DULO1CAP6 PO; +EZET10TA21 PO; +FAMO1TAB11 PO; +GALZ50CA PO; +MAGN400C PO; -MYRB25TA; +MYRB25TA PO; -TADA5TAB; +TADA5TAB PO; -TELM1TAB35; +TELM1TAB35 PO; +TIRZ5PEN SC; +VITA200T8 PO; +VITA500C24 PO; +[UNRECOGNIZED DRUG - OTHER] PO
[2023-07-25 16:57] LABS: BASO # 0.1 10^3/uL (0.0-0.2); BASO % 0.9 % (0.0-1.0); EOS # 0.5 10^3/uL (0.0-0.5); EOS % 5.4 % (0.0-3.0); HEMATOCRIT 51.3 % (42.0-52.0); HEMOGLOBIN 17.2 g/dl (13.5-17.5); LYMPH # 3.5 10^3/uL (1.5-5.0); LYMPH % 35.3 % (24.0-44.0); MEAN CORPUSCULAR HEMOGLOBIN 30.4 pg (27.0-33.0); MEAN CORPUSCULAR HGB CONC 33.5 g/dl (32.0-36.5); MEAN CORPUSCULAR VOLUME 90.6 fl (80.0-96.0); MONO # 1.1 10^3/uL (0.0-0.8); MONO % 11.1 % (2.0-8.0); NEUTROPHILS # 4.7 10^3/uL (1.5-8.5); PLATELET COUNT, AUTOMATED 226 10^3/uL (150-450); RED BLOOD COUNT 5.66 10^6/uL (4.30-6.10); WHITE BLOOD COUNT 9.9 10^3/uL (4.0-10.0)
[2023-07-25 16:58] LABS: CREATININE, URINE 106.5 MG/DL; MALB URINE SIEMENS < 3.0 MG/L; MAU/CREAT RATIO 2.8 MCG/MG (0.0-30.0)
[2023-07-25 17:18] LABS: ALBUMIN 4.3 G/DL (3.2-5.2); ALKALINE PHOSPHATASE 104 U/L (46-116); ALT/SGPT 38 U/L (7.0-40); AST/SGOT 24 U/L (<34); BILIRUBIN,TOTAL 0.7 MG/DL (0.3-1.2); BLOOD UREA NITROGEN 15 MG/DL (9-23); CALCIUM LEVEL 9.7 MG/DL (8.3-10.6); CARBON DIOXIDE LEVEL 27 MMOL/L (20-31); CHLORIDE LEVEL 107 MMOL/L (98-107); CHOLESTEROL LEVEL 125 MG/DL (<200); CHOLESTEROL RISK RATIO 2.51 (<5); CREATININE FOR GFR 0.99 MG/DL (0.70-1.30); GLOMERULAR FILTRATION RATE > 60.0 (>49); GLUCOSE, FASTING 148 MG/DL (74-106); HDL CHOLESTEROL 49.7 MG/DL (>40); LDL CHOLESTEROL 31.9 MG/DL (<100); NON-HDL-C 75.3 MG/DL; POTASSIUM SERUM 4.8 MMOL/L (3.5-5.1); SODIUM LEVEL 141 MMOL/L (136-145); TOTAL PROTEIN 7.1 G/DL (5.7-8.2); TRIGLYCERIDES LEVEL 217 MG/DL (<150)
== END ==
LOC: M WUC 13:00
PROVIDERS: ATTEND Family Medicine
DX: E11.22 Type 2 diabetes mellitus with diabetic chronic kidney disease (principal); E78.5 Hyperlipidemia, unspecified; E66.9 Obesity, unspecified

== ENCOUNTER 2023-07-26 08:00 | Day surgery (SDC) | payer MEDICARE, OTHER ==
[~2023-07-26] VITALS: Ht 172.7 cm; Wt 122.0 kg
[~2023-07-26 08:00] MED LIST changes: +BACITRACIN OINTMENT 30GM TUBE As Ordered ONE; +LIDOCAINE W/EPINEPHRINE 1% 20ML VIAL XX ONE; +SODIUM BICARBONATE 8.4% INJ 50MEQ 50ML VIAL XX ONE
[2023-07-26] MEDS ORDERED: LIDOCAINE 1% SDV 30ML VIAL XX ONE ×2 (08:30→08:35)
[2023-07-26 09:54] VITALS: BP 132/77; TEMP 98.4; O2SAT 95
== END 2023-07-26 09:59 | disposition home or self-care (01) ==
LOC: M SDC 08:00
PROVIDERS: ATTEND Orthopaedic Surgery Hand Surgery
DX: M71.341 Other bursal cyst, right hand (principal); E11.9 Type 2 diabetes mellitus without complications; G47.30 Sleep apnea, unspecified; I10 Essential (primary) hypertension; E78.00 Pure hypercholesterolemia, unspecified; K21.9 Gastro-esophageal reflux disease without esophagitis; Z91.048 Other nonmedicinal substance allergy status; Z91.041 Radiographic dye allergy status; Z79.899 Other long term (current) drug therapy; Z79.82 Long term (current) use of aspirin; Z79.84 Long term (current) use of oral hypoglycemic drugs; Z79.85 Long-term (current) use of injectable non-insulin antidiabetic drugs

== ENCOUNTER 2023-09-12 06:38 | Day surgery (SDC) | payer MEDICARE, OTHER ==
[~2023-09-12] VITALS: Ht 174 cm; Wt 121.9 kg
[~2023-09-12 06:38] MED LIST changes: +ATOR40TA75 PO; -BACITRACIN OINTMENT 30GM TUBE As Ordered ONE; -LIDOCAINE W/EPINEPHRINE 1% 20ML VIAL XX ONE; -SODIUM BICARBONATE 8.4% INJ 50MEQ 50ML VIAL XX ONE
[2023-09-12] MEDS: NS 1,000 ML IV ONE (07:10)
[2023-09-12] MEDS ORDERED: fentaNYL 100 MCG/2 ML INJECTION As Ordered ONE (07:17)
[2023-09-12 08:17] VITALS: TEMP 97.3
[2023-09-12 08:35] VITALS: BP 123/59; O2SAT 93
[2023-09-12] MEDS ORDERED: propofoL 200 MG/20 ML VIAL As Ordered ONE (08:57)
== END 2023-09-12 08:43 | disposition home or self-care (01) ==
LOC: M OPP 06:38
PROVIDERS: ATTEND Internal Medicine Gastroenterology
DX: Z86.010 Personal history of colon polyps (principal); D12.6 Benign neoplasm of colon, unspecified; K64.0 First degree hemorrhoids; K57.30 Diverticulosis of large intestine without perforation or abscess without bleeding; K22.89 Other specified disease of esophagus; K44.9 Diaphragmatic hernia without obstruction or gangrene; R12 Heartburn; I48.91 Unspecified atrial fibrillation; E11.9 Type 2 diabetes mellitus without complications; G47.30 Sleep apnea, unspecified; Z99.89 Dependence on other enabling machines and devices; Z79.01 Long term (current) use of anticoagulants; Z79.02 Long term (current) use of antithrombotics/antiplatelets; Z79.84 Long term (current) use of oral hypoglycemic drugs; Z79.891 Long term (current) use of opiate analgesic; Z79.899 Other long term (current) drug therapy; Z91.041 Radiographic dye allergy status; Z91.048 Other nonmedicinal substance allergy status
CPT/HCPCS: 43239; 45380; 88305; J3010

== ENCOUNTER → 2024-04-05 | Outpatient (REF) | payer MEDICARE, OTHER ==
[~2024-04-05] MED LIST changes: +GABA-1172; -GABA-282
== END ==
LOC: M SFHCPLAZ 17:36
PROVIDERS: ATTEND Physician Assistant Medical
DX: J06.9 Acute upper respiratory infection, unspecified (principal)

== ENCOUNTER → 2024-04-30 | Outpatient (CLI) | payer MEDICARE, OTHER ==
[2024-04-30 17:02] LABS: BASO # 0.1 10^3/uL (0.0-0.2); EOS # 0.4 10^3/uL (0.0-0.5); EOS % 5.4 % (0.0-3.0); HEMATOCRIT 46.7 % (42.0-52.0); HEMOGLOBIN 15.5 g/dl (13.5-17.5); LYMPH # 3.1 10^3/uL (1.5-5.0); LYMPH % 38.7 % (24.0-44.0); MEAN CORPUSCULAR HEMOGLOBIN 29.7 pg (27.0-33.0); MEAN CORPUSCULAR HGB CONC 33.2 g/dl (32.0-36.5); MEAN CORPUSCULAR VOLUME 89.5 fl (80.0-96.0); MONO # 0.8 10^3/uL (0.0-0.8); MONO % 10.1 % (2.0-8.0); NEUTROPHILS # 3.6 10^3/uL (1.5-8.5); NEUTROPHILS % 44.4 % (36.0-66.0); PLATELET COUNT, AUTOMATED 220 10^3/uL (150-450); RED BLOOD COUNT 5.22 10^6/uL (4.30-6.10)
[2024-04-30 17:17] LABS: BLOOD UREA NITROGEN 21 MG/DL (9-23); CALCIUM LEVEL 9.5 MG/DL (8.3-10.6); CARBON DIOXIDE LEVEL 27 MMOL/L (20-31); CHLORIDE LEVEL 107 MMOL/L (98-107); CREATININE FOR GFR 0.96 MG/DL (0.70-1.30); GLOMERULAR FILTRATION RATE > 60.0 (>49); GLUCOSE, FASTING 128 MG/DL (74-106); SODIUM LEVEL 138 MMOL/L (136-145)
== END ==
LOC: M WUC 11:40
PROVIDERS: ATTEND Internal Medicine Cardiovascular Disease
DX: I48.0 Paroxysmal atrial fibrillation (principal); I50.9 Heart failure, unspecified

== ENCOUNTER → 2024-09-26 | Outpatient (CLI) | payer MEDICARE, OTHER ==
[~2024-09-26] MED LIST changes: -TADA5TAB PO; +TADA5TAB94 PO
[2024-09-26 13:32] LABS: BASO # 0.1 10^3/uL (0.0-0.2); BASO % 0.6 % (0.0-1.0); EOS # 0.4 10^3/uL (0.0-0.5); EOS % 4.3 % (0.0-3.0); HEMATOCRIT 48.7 % (42.0-52.0); LYMPH # 3.2 10^3/uL (1.5-5.0); LYMPH % 31.9 % (24.0-44.0); MEAN CORPUSCULAR HEMOGLOBIN 26.5 pg (27.0-33.0); MEAN CORPUSCULAR HGB CONC 30.8 g/dl (32.0-36.5); MEAN CORPUSCULAR VOLUME 86.2 fl (80.0-96.0); MONO # 1.1 10^3/uL (0.0-0.8); MONO % 11.4 % (2.0-8.0); NEUTROPHILS # 5.2 10^3/uL (1.5-8.5); NEUTROPHILS % 51.5 % (36.0-66.0); PLATELET COUNT, AUTOMATED 252 10^3/uL (150-450); RED BLOOD COUNT 5.65 10^6/uL (4.30-6.10)
[2024-09-26 13:34] LABS: HEMOGLOBIN A1c 6.3 % (4.0-6.0)
[2024-09-26 13:44] LABS: ALBUMIN 4.1 G/DL (3.2-5.2); ALKALINE PHOSPHATASE 103 U/L (40-129); ALT/SGPT 49 U/L (7.0-40); AST/SGOT 40 U/L (<34); BILIRUBIN,TOTAL 0.9 MG/DL (0.3-1.2); BLOOD UREA NITROGEN 16 MG/DL (9-23); CALCIUM LEVEL 9.7 MG/DL (8.3-10.6); CARBON DIOXIDE LEVEL 29 MMOL/L (20-31); CHLORIDE LEVEL 102 MMOL/L (98-107); CHOLESTEROL LEVEL 123 MG/DL (<200); CHOLESTEROL RISK RATIO 2.38 (<5); CREATININE FOR GFR 1.03 MG/DL (0.70-1.30); CREATININE, URINE 148.2 MG/DL; GLOMERULAR FILTRATION RATE > 60.0 (>49); GLUCOSE, FASTING 118 MG/DL (74-106); HDL CHOLESTEROL 51.6 MG/DL (>40); MALB URINE SIEMENS < 3.0 MG/L; NON-HDL-C 71.4 MG/DL; POTASSIUM SERUM 4.9 MMOL/L (3.5-5.1); SODIUM LEVEL 141 MMOL/L (136-145); TOTAL PROTEIN 7.1 G/DL (5.7-8.2); TRIGLYCERIDES LEVEL 202 MG/DL (<150)
== END ==
LOC: M WUC 11:06
PROVIDERS: ATTEND Family Medicine
DX: Z00.00 Encounter for general adult medical examination without abnormal findings (principal); E11.22 Type 2 diabetes mellitus with diabetic chronic kidney disease; E78.5 Hyperlipidemia, unspecified

== ENCOUNTER → 2025-04-30 | Outpatient (CLI) | payer MEDICARE, OTHER ==
[~2025-04-30] MED LIST changes: +AMLO-751 PO; -AMLO10TA PO; -EZET10TA21 PO; +EZET10TA57 PO; -FLOM0.4C39 PO; -GALZ50CA PO; +TADA5TAB2 PO; -TADA5TAB94 PO; +TAMS-18 PO; +ZINC50CA4 PO
== END ==
LOC: M RAD 09:16
PROVIDERS: ATTEND Neurological Surgery
DX: M48.062 Spinal stenosis, lumbar region with neurogenic claudication (principal); G99.2 Myelopathy in diseases classified elsewhere

== ENCOUNTER → 2025-05-08 | Outpatient (REF) | payer MEDICARE, OTHER ==
[2025-05-08 16:39] LABS: BASO # 0.1 10^3/uL (0.0-0.2); BASO % 1.1 % (0.0-1.0); EOS # 0.3 10^3/uL (0.0-0.5); EOS % 3.4 % (0.0-3.0); LYMPH # 2.8 10^3/uL (1.5-5.0); LYMPH % 33.6 % (24.0-44.0); MONO # 0.9 10^3/uL (0.0-0.8); MONO % 11.4 % (2.0-8.0); NEUTROPHILS # 4.2 10^3/uL (1.5-8.5); NEUTROPHILS % 50.3 % (36.0-66.0); PLATELET COUNT, AUTOMATED 239 10^3/uL (150-450)
[2025-05-08 16:53] LABS: CALCIUM LEVEL 8.7 MG/DL (8.3-10.6); CARBON DIOXIDE LEVEL 25 MMOL/L (20-31); CHLORIDE LEVEL 106 MMOL/L (98-107); CREATININE FOR GFR 0.85 MG/DL (0.70-1.30); GLOMERULAR FILTRATION RATE > 90.0 (>49); POTASSIUM SERUM 4.5 MMOL/L (3.5-5.1); SODIUM LEVEL 141 MMOL/L (136-145)
[2025-05-08 17:07] LABS: INR 0.98
[2025-05-08 17:45] LABS: ESTIMATED AVERAGE GLUCOSE 131.0 MG/DL (60-110)
== END ==
LOC: M SFHCLERA 10:50
PROVIDERS: ATTEND Family Medicine
DX: Z01.818 Encounter for other preprocedural examination (principal); E11.22 Type 2 diabetes mellitus with diabetic chronic kidney disease

== ENCOUNTER → 2025-05-10 | Outpatient (REF) | payer MEDICARE, OTHER | LOC: M LAB REF 14:28 | PROVIDERS: ATTEND Family Medicine | DX: Z01.818 Encounter for other preprocedural examination (principal) ==

== ENCOUNTER → 2025-06-11 | Outpatient (REF) | payer MEDICARE, OTHER ==
[2025-06-11 17:48] LABS: BASO # 0.1 10^3/uL (0.0-0.2); BASO % 0.8 % (0.0-1.0); EOS # 0.4 10^3/uL (0.0-0.5); EOS % 4.0 % (0.0-3.0); LYMPH # 3.0 10^3/uL (1.5-5.0); LYMPH % 33.0 % (24.0-44.0); MONO # 1.2 10^3/uL (0.0-0.8); MONO % 12.8 % (2.0-8.0); NEUTROPHILS # 4.5 10^3/uL (1.5-8.5); NEUTROPHILS % 49.2 % (36.0-66.0); PLATELET COUNT, AUTOMATED 256 10^3/uL (150-450)
[2025-06-11 17:55] LABS: ALT/SGPT 16 U/L (7.0-40); AST/SGOT 16 U/L (<34); CALCIUM LEVEL 8.9 MG/DL (8.3-10.6); CARBON DIOXIDE LEVEL 24 MMOL/L (20-31); CHLORIDE LEVEL 103 MMOL/L (98-107); CHOLESTEROL LEVEL 131 MG/DL (<200); CHOLESTEROL RISK RATIO 2.56 (<5); CREATININE FOR GFR 0.79 MG/DL (0.70-1.30); GLOMERULAR FILTRATION RATE > 90.0 (>49); LDL CHOLESTEROL 39.7 MG/DL (<100); NON-HDL-C 79.9 MG/DL; POTASSIUM SERUM 4.6 MMOL/L (3.5-5.1); SODIUM LEVEL 137 MMOL/L (136-145); TRIGLYCERIDES LEVEL 201 MG/DL (<150)
[2025-06-11 18:03] LABS: ESTIMATED AVERAGE GLUCOSE 137.0 MG/DL (60-110)
[2025-06-11 20:38] LABS: CREATININE, URINE 74.6 MG/DL; MALB URINE SIEMENS < 3.0 MG/L
== END ==
LOC: M SFHCLERA 14:55
PROVIDERS: ATTEND Student in an Organized Health Care Education/Training Program
DX: Z00.00 Encounter for general adult medical examination without abnormal findings (principal); E11.22 Type 2 diabetes mellitus with diabetic chronic kidney disease